=== PATIENT | male | born 1990 | race Caucasian/White ===

== ENCOUNTER → 2020-10-07 | Outpatient (CLI) | payer BC ==
[~2020-10-07] MED LIST: HYDR-3237 PO
[2020-10-07 09:59] LABS: BASOPHILS % (AUTO) 0 % (0-1); EOSINOPHILS % (AUTO) 3 % (1-7); LYMPHOCYTES % (AUTO) 36 % (22-44); MEAN CORPUSCULAR HEMOGLOBIN 32.1 pg (27.5-34.5); MEAN PLATELET VOLUME 9.3 fL (7.4-10.4); MONOCYTES % (AUTO) 9 % (2-9); NEUTROPHILS % (AUTO) 52 % (42-75); PLATELET COUNT 204 x10^3/uL (130-400); RED BLOOD COUNT 5.13 x10^6/uL (4.38-5.82); RED CELL DISTRIBUTION WIDTH 12.1 % (9.4-14.8)
[2020-10-07 10:00] LABS: HCT (SEDRATE) 46.7 % (39.2-51.8)
[2020-10-07 10:01] LABS: MD NO
[2020-10-07 10:08] LABS: ANION GAP 6 mmol/L (5-15); CALCIUM 9.3 mg/dL (8.5-10.1); CHLORIDE 108 mmol/L (98-107); CREATININE 1.04 mg/dL (0.7-1.3)
[2020-10-07 10:10] LABS: INTERNATIONAL NORMALIZED RATIO 0.99 (0.93-1.1); PROTHROMBIN TIME 10.6 Seconds (9.6-11.5)
== END | disposition home or self-care (01) ==
LOC: STAR 08:43
PROVIDERS: ATTEND Orthopaedic Surgery Orthopaedic Surgery of the Spine
DX: Z01.812 Encounter for preprocedural laboratory examination (principal); S42.001A Fracture of unspecified part of right clavicle, initial encounter for closed fracture; X58.XXXA Exposure to other specified factors, initial encounter; Y92.89 Other specified places as the place of occurrence of the external cause; Y93.89 Activity, other specified; Y99.8 Other external cause status; Z20.822 Contact with and (suspected) exposure to COVID-19
CPT/HCPCS: 80048; 85025; 85610; 85651; 85730; 87635

== ENCOUNTER 2020-10-11 07:14 | Day surgery (SDC) | payer BC ==
[~2020-10-11] VITALS: Ht 182.9 cm; Wt 83.4 kg
[2020-10-11] MEDS ORDERED: VANCOMYCIN PMX 1GM/200ML 200 ML IV ONE (07:30)
[2020-10-11] MEDS ORDERED: LACTATED RINGERS 1,000 ML IV SCH (08:00)
[2020-10-11] MEDS ORDERED: CHLORHEXIDINE 15 ML UDC MM ONE (08:00)
[2020-10-11] MEDS ORDERED: LIDOCAINE-MPF 1%, 2ML INFIL ONE (08:00)
[2020-10-11] MEDS ORDERED: MIDAZOLAM 1 MG/ML, 2ML ONE (08:25)
[2020-10-11] MEDS ORDERED: FENTANYL PF 250 MCG/5ML ONE (08:26)
[2020-10-11] MEDS ORDERED: EPINEPHRINE 1 MG/ML, 1ML ONE (09:25)
[2020-10-11] MEDS ORDERED: BUPIVACAINE/PF 0.5% ONE (09:25)
[2020-10-11] MEDS ORDERED: ONDANSETRON 2MG/ML, 2ML IVPush PRN (10:00)
[2020-10-11] MEDS ORDERED: ACETAMINOPHEN 325 MG TABLET PO PRN (10:00)
[2020-10-11] MEDS ORDERED: PROMETHAZINE 25 MG SUPP PR PRN (10:00)
[2020-10-11] MEDS ORDERED: LORazepam 2 MG/ML, 1ML IVPush PRN (10:00)
[2020-10-11] MEDS ORDERED: METHOCARBAMOL 1,000 MG in DEXTROSE 5% 100 ML IV PRN (10:00)
[2020-10-11] MEDS ORDERED: FENTANYL PF 100 MCG/2ML IV PRN (10:00)
[2020-10-11] MEDS ORDERED: OXYcodone 5 MG/5 ML ORAL.SOL UDC PO PRN (10:00)
[2020-10-11] MEDS ORDERED: MEPERIDINE/PF 25MG/0.5ML IVPush PRN (10:00)
[2020-10-11] MEDS ORDERED: PROMETHAZINE 25 MG/ML, 1ML IVPush PRN (10:00)
[2020-10-11] MEDS ORDERED: HYDROmorphone 1 MG/ML, 1ML INJ IVPush PRN (10:00)
[2020-10-11] MEDS ORDERED: CEFAZOLIN 1,000 MG ONE (10:14)
[2020-10-11] MEDS ORDERED: DEXAMETHASONE 4 MG/ML, 1ML ONE (10:14)
[2020-10-11] MEDS ORDERED: ROCURONIUM 10MG/ML,5ML ONE (10:14)
[2020-10-11] MEDS ORDERED: ONDANSETRON 2MG/ML, 2ML ONE (10:14)
[2020-10-11] MEDS ORDERED: SUCCINYLCHOLINE 20 MG/ML, 10ML ONE (10:14)
[2020-10-11] MEDS ORDERED: GLYCOPYRROLATE 0.2MG/1ML, 5ML ONE (10:14)
[2020-10-11] MEDS ORDERED: NEOSTIGMINE 1 MG/ML, 10ML ONE (10:14)
[2020-10-11] MEDS ORDERED: PROPOFOL 10 MG/ML, 20ML ONE (10:14)
[2020-10-11] MEDS ORDERED: FENTANYL PF 100 MCG/2ML ONE (11:05)
[2020-10-11] MEDS ORDERED: OXYcodone 5 MG/5 ML ORAL.SOL UDC ONE (11:06)
[2020-10-11] MEDS ORDERED: ACETAMINOPHEN 650 MG/20.3 ML UDC ONE (11:06)
[2020-10-11] MEDS ORDERED: HYDR-1067 PO (11:40)
== END 2020-10-11 12:20 | disposition home or self-care (01) ==
LOC: OUT 07:14
PROVIDERS: ATTEND Orthopaedic Surgery Orthopaedic Surgery of the Spine
DX: S42.021A Displaced fracture of shaft of right clavicle, initial encounter for closed fracture (principal); F17.290 Nicotine dependence, other tobacco product, uncomplicated; Z79.891 Long term (current) use of opiate analgesic; W00.0XXA Fall on same level due to ice and snow, initial encounter; Y93.23 Activity, snow (alpine) (downhill) skiing, snowboarding, sledding, tobogganing and snow tubing; Y92.89 Other specified places as the place of occurrence of the external cause; Y99.8 Other external cause status
CPT/HCPCS: 23515; 73000; C1713; J0171; J0690; J1100; J2250; J2405; J2704; J2710; J3010; J3370; J7120; 76000; J0330